=== PATIENT | female | born 1990 | race Caucasian/White ===

== ENCOUNTER 2016-10-19 15:27 | Emergency (ER) | payer OTHER ==
[2016-10-19] MEDS ORDERED: NS 0.9% 1000 ML* 2,000 ML IV ONE (18:42)
[2016-10-19] MEDS ORDERED: Meclizine TAB* 12.5 MG PO ONE (19:41)
[2016-10-19 20:11] LABS: Hematocrit 38 % (35-47); Hemoglobin 13.1 g/dl (12.0-16.0); Mean Corpuscular HGB Conc 34 g/dl (31-36); Mean Corpuscular Hemoglobin 30 pg (27-31); Mean Corpuscular Volume 89 fL (80-97); Mean Platelet Volume 9 um3 (7.4-10.4); Red Blood Count 4.31 10^6/ul (4.0-5.4); Red Cell Distribution Width 13 % (10.5-15); White Blood Count 9.3 10^3/ul (3.5-10.8)
[2016-10-19 20:27] LABS: Albumin 4.5 g/dL (3.2-5.2); BUN/Creatinine Ratio 19.6 (8-20); Calcium 9.6 mg/dL (8.6-10.3); EGFR Non-African American 129.9 (>60); Magnesium 2.1 mg/dL (1.9-2.7); Potassium 3.5 mmol/L (3.5-5.0); Total Bilirubin 0.6 mg/dL (0.2-1.0); Total Protein 7.5 g/dL (6.4-8.9)
--- NOTE | 2016-10-19 21:01 | RAD ---
Indication: . Real-time sonography of the was performed. There is a single intrauterine gestation with a yolk sac a 4 mm with heart activity noted at 161 bpm. Amniotic fluid is within normal limits. The mean crown-rump length is 17 mm corresponding to gestational age of 8 weeks 1 day. The mean gestational sac size is 3.0 cm corresponding to gestational age of 8 weeks 2 days. The estimated gestational age is 8 weeks 2 days. Estimated date of delivery is May 29, 2017. There is a small subchorionic hemorrhage measuring 15 x 8 x 9 mm in the right fundus of the uterus. The right ovary measures 18 x 8 x 12 mm. Left ovary measures 29 x 21 x 25 mm. Likely corpus luteal cyst measuring up to 19 mm. IMPRESSION: Single intrauterine gestation with a composite gestational age of 8 weeks 2 days. Estimated date of delivery is May 29, 2017. heart activity is noted. Subchorionic hemorrhage in the right uterine fundus measuring 15 x 8 x 9 mm.
[2016-10-19 21:31] LABS: Urine Bilirubin Negative (Negative); Urine Glucose Negative (Negative); Urine Nitrite Negative (Negative)
[2016-10-19 22:50] VITALS: BP 98/66
--- NOTE | 2016-10-19 23:07 | ED ---
Bryant Weiss Claudia, scribed for Ray Ricks on 10/19/16 at 2106 . Complex/Multi-Sys Presentation - HPI Summary HPI Summary: 25 year old female presents to the ED with lightheadedness gradual onset 4 days ago. Pt notes aggravated Sx with movement of her head. Pt denies SOB, CP abd pain. Pt notes her Sx are improved while she has been laying supine in the ED. Pt notes she is 8 weeks . - History Of Current Complaint Chief Complaint: EDDizziness Time Seen by Provider: 10/19/16 19:14 Hx Obtained From: Patient Onset/Duration: Gradual Onset, Lasting Days Timing: Intermittent, Lasting: Associated Signs And Symptoms: Positive: Other - lightheaded - Allergies/Home Medications Allergies/Adverse Reactions: Allergies Allergy/AdvReac Type Severity Reaction Status Date / Time No Known Allergies Allergy Verified 12/15/15 09:31 PMH/Surg Hx/FS Hx/Imm Hx Previously Healthy: Yes Sensory History: Reports: Hx Contacts or Glasses - GLASSES Denies: Hx Hearing Aid Opthamlomology History: Reports: Hx Contacts or Glasses - GLASSES - Surgical History Surgery Procedure, Year, and Place: CSECTION X3 2008, 2013, 07[place]12 [facility] [place] Anesthesia Reactions: No Infectious Disease History: Yes Infectious Disease History: Denies: Traveled Outside the [place] in Last 30 Days - Family History Known Family History: Negative: Hypertension, Diabetes - Social History Occupation: Employed Full-time Lives: With Family Alcohol Use: None Substance Use Type: Reports: None Substance Use Comment - Amount & Last Used: no known Smoking Status (MU): Never Smoked Tobacco Review of Systems Constitutional: Negative Negative: Fever Eyes: Negative ENT: Negative Cardiovascular: Negative Respiratory: Negative Gastrointestinal: Negative Genitourinary: Negative Musculoskeletal: Negative Skin: Negative Neurological: Other - lightheadedness Psychological: Normal All Other Systems Reviewed And Are Negative: Yes Physical Exam Triage Information Reviewed: Yes Vital Signs On Initial Exam: Initial Vitals Temp Pulse Resp BP Pulse Ox 98.3 F 97 17 111/64 100 10/19/16 15:31 10/19/16 15:31 10/19/16 15:31 10/19/16 15:31 10/19/16 15:31 Vital Signs Reviewed: Yes Appearance: Positive: Well-Appearing, No Pain Distress Skin: Positive: Warm, Skin Color Reflects Adequate Perfusion, Dry Head/Face: Positive: Normal Head/Face Inspection Eyes: Positive: EOMI, ROSE ENT: Positive: Normal ENT inspection Neck: Positive: Supple, Nontender Respiratory/Lung Sounds: Positive: Clear to Auscultation, Breath Sounds Present Cardiovascular: Positive: RRR, Pulses are Symmetrical in both Upper and Lower Extremities Abdomen Description: Positive: Nontender, Soft Musculoskeletal: Positive: Normal, Strength/ROM Intact Neurological: Positive: Normal, Sensory/Motor Intact, Alert, Oriented to Person Place, Time - [place] Coma Scale Coma Scale Total: 15 Diagnostics - Vital Signs Vital Signs Temp Pulse Resp BP Pulse Ox 10/19/16 18:33 98.8 F 86 20 98/57 100 10/19/16 17:26 98.5 F 90 20 103/69 100 10/19/16 16:28 98.9 F 95 16 107/72 100 10/19/16 15:31 98.3 F 97 17 111/64 100 - Laboratory Lab Results: Lab Results 10/19/16 10/19/16 Range/Units 20:00 20:00 WBC 9.3 (3.5-10.8) 10^3/ul RBC 4.31 (4.0-5.4) 10^6/ul Hgb 13.1 (12.0-16.0) g/dl Hct 38 (35-47) % MCV 89 (80-97) fL MCH 30 (27-31) pg MCHC 34 (31-36) g/dl RDW 13 (10.5-15) % Plt Count 281 (150-450) 10^3/ul MPV 9 (7.4-10.4) um3 Neut % (Auto) 60.2 (38-83) % Lymph % (Auto) 31.2 (25-47) % [place] % (Auto) 6.3 (1-9) % Eos % (Auto) 1.4 (0-6) % Baso % (Auto) 0.9 (0-2) % Absolute Neuts (auto) 5.6 (1.5-7.7) 10^3/ul Absolute Lymphs (auto) 2.9 (1.0-4.8) 10^3/ul Absolute Monos (auto) 0.6 (0-0.8) 10^3/ul Absolute Eos (auto) 0.1 (0-0.6) 10^3/ul Absolute Basos (auto) 0.1 (0-0.2) 10^3/ul Absolute Nucleated RBC 0 10^3/ul Nucleated RBC % 0 Sodium 133 (133-145) mmol/L Potassium 3.5 (3.5-5.0) mmol/L Chloride 102 (101-111) mmol/L Carbon Dioxide 23 (22-32) mmol/L Anion Gap 8 (2-11) mmol/L BUN 11 (6-24) mg/dL Creatinine 0.56 (0.51-0.95) mg/dL Est GFR ( Amer) 167.0 (>60) Est GFR (Non-Af Amer) 129.9 (>60) BUN/Creatinine Ratio 19.6 (8-20) Glucose 80 (70-100) mg/dL Calcium 9.6 (8.6-10.3) mg/dL Magnesium 2.1 (1.9-2.7) mg/dL Total Bilirubin 0.60 (0.2-1.0) mg/dL AST 18 (13-39) U/L ALT 20 (7-52) U/L Alkaline Phosphatase 47 (34-104) U/L Troponin I 0.00 (<0.04) ng/mL Total Protein 7.5 (6.4-8.9) g/dL Albumin 4.5 (3.2-5.2) g/dL Globulin 3.0 (2-4) g/dL Albumin/Globulin Ratio 1.5 (1-3) Lipase 15 (11.0-82.0) U/L Beta HCG, Quant 646092.00 mIU/mL Result Diagrams: 10/19/16 20:00 10/19/16 20:00 Lab Statement: Any lab studies that have been ordered have been reviewed, and results considered in the medical decision making process. - Ultrasound No standard instances Ultrasound Interpretation: Positive (See Comments) - Transvaginal US: single intrauterine gestation with a composite gestational age of 8 weeks 2 days. Estimated date of delivery is May 29, 2017. heart activity is noted. Subchorionic hemmorhage in the right uterine fundus measuring 15 x 8 x 9mm. Ultrasound Interpretation Completed By: Radiologist Re-Evaluation - Re-Evaluation 1 Re-Evaluation Time: 22:17 Comment: LAB WORK AND IMAGING DISCUSSED WIHT PT WHOM IS AGREEABLE WITH PLAN TO BE D/C HOME AND F/O WITH OBGYN Complex Multi-Symp Course/Dx Assessment/Plan: AFTER LAB/ URINE WORKUP AND US TRANSVAGINAL PT IS AGREEABLE WITH THE PLAN TO BE D/C HOME AND FOLLOW UP WITH OBGYN - Diagnoses Provider Diagnoses: Threatened in early Discharge - Discharge Plan Condition: Stable Disposition: HOME Referrals: Kelley Hart MD [Primary Care Provider] - Additional Instructions: PLEASE FOLLOW- UP WITH YOUR OBGYN IN 3 DAYS. The documentation as recorded by the Bryant olvera Claudia accurately reflects the service I personally performed and the decisions made by , Ray Ricks.
== END 2016-10-19 22:50 | disposition home or self-care (01) ==
LOC: ED 15:27
DX: O20.0 Threatened abortion (principal); R42 Dizziness and giddiness
CPT/HCPCS: 36415; 76830; 80053; 81003; 83690; 83735; 84484; 84702; 85025; 86850; 86900; 86901; 99284

== ENCOUNTER 2017-03-19 15:57 | Emergency (ER) | payer OTHER ==
[2017-03-19] MEDS ORDERED: NS 0.9% 1000 ML* 2,000 ML IV ONE (17:36)
[2017-03-19 17:58] LABS: Hematocrit 34 % (35-47); Hemoglobin 11.7 g/dl (12.0-16.0); Mean Corpuscular HGB Conc 34 g/dl (31-36); Mean Corpuscular Hemoglobin 32 pg (27-31); Mean Corpuscular Volume 92 fL (80-97); Mean Platelet Volume 8 um3 (7.4-10.4); Red Cell Distribution Width 12 % (10.5-15); White Blood Count 13.4 10^3/ul (3.5-10.8)
[2017-03-19 18:12] LABS: Albumin 3.3 g/dL (3.2-5.2); BUN/Creatinine Ratio 22.9 (8-20); Calcium 8.4 mg/dL (8.6-10.3); EGFR African American 198.1 (>60); Globulin 3.2 g/dL (2-4); Magnesium 1.8 mg/dL (1.9-2.7); Potassium 3.5 mmol/L (3.5-5.0); Total Bilirubin 0.4 mg/dL (0.2-1.0); Total Protein 6.5 g/dL (6.4-8.9)
[2017-03-19 19:38] VITALS: BP 108/74
--- NOTE | 2017-03-19 20:20 | ED ---
I, Oh,Soohyun, scribed for Charan Hernandez MD on 03/19/17 at 1744 . Dizziness - HPI Summary HPI Summary: This 26 y/o female presents to ED for dizziness and nausea since 2 days ago. Pt is currently 29 weeks and 6 days . Due at May 29, 2017. Pt states that she may be dehydrated and reports that she hasn't been drinking much. Her water comes form [facility], and she states that she doesn't like it because " it smelly bleach-y". Pt states that she walks about 1 hour to get to her work. She denies any morning recently. Negative syncopal episode. Pt is nonsmoker or nondrinker. . PMHx includes 3 and cholecystectomy. Primary care involves Dr. Metz. - History Of Current Complaint Chief Complaint: EDOBProblems Stated Complaint: CRAMPS,30 WKS PREG Time Seen by Provider: 03/19/17 17:25 Hx Obtained From: Patient, Medical Records Timing: Constant Character: Lightheaded Aggravating Factor(s): Nothing Alleviating Factor(s): Nothing Associated Signs And Symptoms: Positive: Nausea - Allergies/Home Medications Allergies/Adverse Reactions: Allergies Allergy/AdvReac Type Severity Reaction Status Date / Time No Known Allergies Allergy Verified 12/15/15 09:31 PMH/Surg Hx/FS Hx/Imm Hx Sensory History: Reports: Hx Contacts or Glasses - GLASSES Denies: Hx Hearing Aid Opthamlomology History: Reports: Hx Contacts or Glasses - GLASSES - Surgical History Surgery Procedure, Year, and Place: CSECTION X3 2008, 2013, 07/12 [facility] [place] Hx Anesthesia Reactions: No Infectious Disease History: No Infectious Disease History: Denies: Traveled Outside the US in Last 30 Days - Family History Known Family History: Negative: Hypertension, Diabetes - Social History Alcohol Use: None Substance Use Type: Reports: None Substance Use Comment - Amount & Last Used: no known Smoking Status (MU): Never Smoked Tobacco Review of Systems Negative: Fever Positive: Nausea Neurological: Other - Positive for dizziness All Other Systems Reviewed And Are Negative: Yes Physical Exam - Summary Physical Exam Summary: The patient is well-nourished in no acute distress and in no acute pain. The skin is warm and dry and skin color reflects adequate perfusion. Good skin turgor. HEENT: The head is normocephalic and atraumatic. The pupils are equal and reactive. The conjunctivae are clear and without drainage. Nares are patent and without drainage. The external ears are intact. The ear canals are patent and without drainage. The tympanic membranes are intact. oral mucosa dry. Neck is supple with full range of motion and non-tender. There are no carotid bruits. There is no neck vein distension. Respiratory: Chest is non-tender. Lungs are clear to auscultation and breath sounds are symmetrical and equal. Cardiovascular: Hear is regular rate and rhythm. There is no murmur or rub auscultated. There is no peripheral edema and pulses are symmetrical and equal. Abdomen: The abdomen is gravid . There are normal bowel sounds heard in all four quadrants and there is no organomegaly palpated. Musculoskeletal: There is no back pain noted. Extremities are non-tender with full range of motion. There is good capillary refill. There is no peripheral edema or calf tenderness elicited. No swelling of extremities. Good pulse Neurological: Patient is alert and oriented to person, place and time. The patient has symmetrical motor strength in all four extremities. Cranial nerves are grossly intact. Deep tendon reflexes are symmetrical and equal in all four extremities. Psychiatric: The patient has an appropriate affect and does not exhibit any anxiety or depression. Triage Information Reviewed: Yes Vital Signs On Initial Exam: Initial Vitals Temp Pulse Resp BP Pulse Ox 97.8 F 100 16 129/85 100 03/19/17 16:03 03/19/17 16:03 03/19/17 16:03 03/19/17 16:03 03/19/17 16:03 Vital Signs Reviewed: Yes - [place] Coma Scale Coma Scale Total: 15 Diagnostics - Vital Signs Vital Signs Temp Pulse Resp BP Pulse Ox 03/19/17 16:03 97.8 F 100 16 129/85 100 - Laboratory Lab Results: Lab Results 03/19/17 03/19/17 03/19/17 Range/Units 17:50 17:50 17:50 WBC 13.4 H (3.5-10.8) 10^3/ul RBC 3.70 L (4.0-5.4) 10^6/ul Hgb 11.7 L (12.0-16.0) g/dl Hct 34 L (35-47) % MCV 92 (80-97) fL MCH 32 H (27-31) pg MCHC 34 (31-36) g/dl RDW 12 (10.5-15) % Plt Count 267 (150-450) 10^3/ul MPV 8 (7.4-10.4) um3 Neut % (Auto) 78.4 (38-83) % Lymph % (Auto) 15.8 L (25-47) % [place] % (Auto) 4.6 (1-9) % Eos % (Auto) 0.8 (0-6) % Baso % (Auto) 0.4 (0-2) % Absolute Neuts (auto) 10.5 H (1.5-7.7) 10^3/ul Absolute Lymphs (auto) 2.1 (1.0-4.8) 10^3/ul Absolute Monos (auto) 0.6 (0-0.8) 10^3/ul Absolute Eos (auto) 0.1 (0-0.6) 10^3/ul Absolute Basos (auto) 0.1 (0-0.2) 10^3/ul Absolute Nucleated RBC 0 10^3/ul Nucleated RBC % 0 Sodium 132 L (133-145) mmol/L Potassium 3.5 (3.5-5.0) mmol/L Chloride 105 (101-111) mmol/L Carbon Dioxide 20 L (22-32) mmol/L Anion Gap 7 (2-11) mmol/L BUN 11 (6-24) mg/dL Creatinine 0.48 L (0.51-0.95) mg/dL Est GFR ( Amer) 198.1 (>60) Est GFR (Non-Af Amer) 154.0 (>60) BUN/Creatinine Ratio 22.9 H (8-20) Glucose 69 L (70-100) mg/dL Lactic Acid 0.6 (0.5-2.0) mmol/L Calcium 8.4 L (8.6-10.3) mg/dL Magnesium 1.8 L (1.9-2.7) mg/dL Total Bilirubin 0.40 (0.2-1.0) mg/dL AST 16 (13-39) U/L ALT 12 (7-52) U/L Alkaline Phosphatase 86 (34-104) U/L Total Protein 6.5 (6.4-8.9) g/dL Albumin 3.3 (3.2-5.2) g/dL Globulin 3.2 (2-4) g/dL Albumin/Globulin Ratio 1.0 (1-3) Result Diagrams: 03/19/17 17:50 03/19/17 17:50 Lab Statement: Any lab studies that have been ordered have been reviewed, and results considered in the medical decision making process. Re-Evaluation - Re-Evaluation First Eval Re-Evaluation Time: 19:20 Comment: MD in room to share lab work with patient and friend present at bedside. Hard copies of lab results are provided to pt. Dizzy Course/Dx - Course Assessment/Plan: This 26 y/o female presents to ED for dizziness. Pt admits to not drinking enough due to her water at home tasting "bleach-y". She also ambulates on foot an hour for her work. Blood work is wnl except for mildly elevated WBC of 13.4 and mild anemia. Pt is given fluid resuscitation with 2L NS. Pt is discharged with outpatient f/u with Dr. Metz. - Diagnoses Differential Diagnosis/HQI/PQRI: Hypovolemia, Metabolic Abnormality, Other - heat exhaustion Provider Diagnoses: Hypoglycemia, Dehydration, Discharge - Discharge Plan Condition: Stable Disposition: HOME Patient Education Materials: (ED), Dehydration (ED), Non-diabetic Hypoglycemia (ED) Referrals: Kelley Hart MD [Primary Care Provider] - 2 Days Chris Metz MD [Medical Doctor] - 2 Days The documentation as recorded by the Min olvera Soohyun accurately reflects the service I personally performed and the decisions made by me, Charan Hernandez MD.
== END 2017-03-19 19:38 | disposition home or self-care (01) ==
LOC: ED 15:57
DX: R42 Dizziness and giddiness (principal); O26.893 Other specified pregnancy related conditions, third trimester; Z3A.29 29 weeks gestation of pregnancy; R11.0 Nausea; E16.2 Hypoglycemia, unspecified; E86.0 Dehydration
CPT/HCPCS: 36415; 80053; 83605; 83735; 85025; 99282

== ENCOUNTER 2017-05-09 17:50 | Inpatient (IN) | payer OTHER ==
[2017-05-09 18:39] LABS: Hematocrit 29 % (35-47); Hemoglobin 9.9 g/dl (12.0-16.0); Mean Corpuscular HGB Conc 34 g/dl (31-36); Mean Corpuscular Hemoglobin 30 pg (27-31); Mean Corpuscular Volume 87 fL (80-97); Mean Platelet Volume 8 um3 (7.4-10.4); Red Blood Count 3.34 10^6/ul (4.0-5.4); Red Cell Distribution Width 13 % (10.5-15)
[2017-05-09] MEDS ORDERED: Sodium Citrate/Citric Acid* 15 ML UDC PO ONE (19:06)
[2017-05-09] MEDS ORDERED: ceFOXitin 2 GM IVPREMIX* 2 GM/50 ML BAG IVPB ONE (19:06)
[2017-05-09] MEDS ORDERED: ceFOXitin 2 GM IVPREMIX* 2 GM/50 ML BAG ONE (19:26)
[2017-05-09] MEDS ORDERED: Sodium Citrate/Citric Acid* 15 ML UDC ONE (19:26)
[2017-05-09] MEDS ORDERED: Morphine PF AMP (0.5MG/ML)* 5 MG/10 ML AMP ONE (19:56)
[2017-05-09] MEDS ORDERED: Nalbuphine* 20 MG/ML 1 ML VIAL IV PRN ×2 (20:21→20:22)
[2017-05-09] MEDS ORDERED: diPHENhydraMINE IV* 50 MG/ML 1 ml VIAL (BENADRYL) IV PRN ×2 (20:21→20:22)
[2017-05-09] MEDS ORDERED: DiMENhydriNATE IV* 50 MG/ML VIAL IV PUSH PRN ×2 (20:21→20:22)
[2017-05-09] MEDS ORDERED: oxyCODONE/Acetamin 5/325 MG* TAB PO PRN (20:21)
[2017-05-09] MEDS ORDERED: HYDROmorphone INJ* 1 MG/ML CARPUJECT SYRINGE IV PRN (20:21)
[2017-05-09] MEDS ORDERED: fentaNYL* 50 MCG/ML 2 ML VIAL (100 MCG VIAL) IV PRN (20:21)
[2017-05-09] MEDS ORDERED: Ondansetron INJ* 2 MG/ML VIAL IV PRN ×2 (20:21→20:22)
[2017-05-09] MEDS ORDERED: Naloxone* 2 MG in NS 0.9% 250 ML* 250 ML IV PRN ×2 (20:21→20:22)
[2017-05-09] MEDS ORDERED: Scopolamine 1.5 mg* PATCH TRANSDERM PRN (20:22)
[2017-05-09] MEDS ORDERED: oxyCODONE TAB* 5 MG TAB PO PRN (20:22)
[2017-05-09] MEDS ORDERED: Naloxone* 0.4 MG/ML 1 ML VIAL IV PRN (20:22)
[2017-05-09] MEDS ORDERED: Scopolomine PATCH Remove* 1 NOTE MISC PATCH OFF PRN (20:22)
[2017-05-09] MEDS ORDERED: OXYTOCIN* 10 UNITS/ML 1 ML VIAL ONE (20:30)
[2017-05-09] MEDS ORDERED: Acetaminophen TAB* 325 MG PO PRN (21:06)
[2017-05-09] MEDS ORDERED: Glycerin ADULT SUPP PR PRN (21:06)
[2017-05-09] MEDS ORDERED: Dibucaine 1% 28.35 GM TUBE PR PRN (21:06)
[2017-05-09] MEDS ORDERED: Witch Hazel PAD* JAR TOPICAL PRN (21:06)
[2017-05-09] MEDS: Ibuprofen TAB* 600 MG PO PRN (23:02)
[2017-05-09] MEDS: oxyCODONE/Acetamin 5/325 MG* TAB PO PRN (23:58)
[2017-05-10] MEDS ORDERED: Lidocaine 1% MPF* 2 ML VIAL ONE (00:45)
[2017-05-10] MEDS: Simethicone TAB* 80 MG TAB.CHEW PO SCH ×4 (07:30→21:35)
[2017-05-10] MEDS: Docusate CAP* 100 MG PO SCH ×3 (07:30→21:35)
[2017-05-10] MEDS: Ibuprofen TAB* 600 MG PO PRN ×3 (07:31→21:35)
[2017-05-10 08:00] LABS: Hematocrit 27 % (35-47); Hemoglobin 9.2 g/dl (12.0-16.0); Mean Corpuscular HGB Conc 35 g/dl (31-36); Mean Corpuscular Hemoglobin 30 pg (27-31); Mean Corpuscular Volume 87 fL (80-97); Mean Platelet Volume 9 um3 (7.4-10.4); Red Blood Count 3.05 10^6/ul (4.0-5.4); Red Cell Distribution Width 13 % (10.5-15); White Blood Count 13.1 10^3/ul (3.5-10.8)
[2017-05-10] MEDS: Ferrous Gluconate TAB* 324 MG TAB PO SCH ×2 (08:34→21:35)
[2017-05-10] MEDS ORDERED: Zolpidem TAB* 5 MG PO PRN (12:05)
[2017-05-10] MEDS ORDERED: oxyCODONE/Acetamin 5/325 MG* TAB PO PRN (12:05)
[2017-05-10] MEDS: oxyCODONE/Acetamin 5/325 MG* TAB PO PRN ×2 (15:37→21:35)
[2017-05-11] MEDS: Ibuprofen TAB* 600 MG PO PRN ×2 (04:49→13:49)
[2017-05-11] MEDS: Ferrous Gluconate TAB* 324 MG TAB PO SCH ×2 (07:30→20:55)
[2017-05-11] MEDS: Simethicone TAB* 80 MG TAB.CHEW PO SCH ×4 (07:30→20:55)
[2017-05-11] MEDS: Docusate CAP* 100 MG PO SCH ×3 (07:31→20:54)
[2017-05-11] MEDS: oxyCODONE/Acetamin 5/325 MG* TAB PO PRN ×3 (10:13→23:09)
[2017-05-12] MEDS: Simethicone TAB* 80 MG TAB.CHEW PO SCH (08:19)
[2017-05-12] MEDS: Docusate CAP* 100 MG PO SCH (08:19)
[2017-05-12] MEDS: oxyCODONE/Acetamin 5/325 MG* TAB PO PRN (08:20)
[2017-05-12] MEDS: Ferrous Gluconate TAB* 324 MG TAB PO SCH (08:20)
[2017-05-12] MEDS: Ibuprofen TAB* 600 MG PO PRN (08:21)
[2017-05-12 08:35] VITALS: BP 117/72
--- NOTE | 2017-05-18 06:24 | OP ---
CC: Dr. Ford * DATE OF OPERATION: 05/09/17 - ROOM #MCHOB-101 DATE OF : 86 SURGEON: Regino Metz MD. CONSTRUCTION EQUIPMENT MECHANIC HELPER: Dr. Ford. ANESTHESIOLOGIST: Ashwin Mcgill MD ANESTHESIA: General anesthesia with endotracheal intubation. PRE-OP DIAGNOSIS: Intrauterine at 37 weeks with the prior section x3 with hepatic cholestasis, breech presentation and she also desires permanent sterilization. POST-OP DIAGNOSIS: Intrauterine at 37 weeks with the prior section x3 with hepatic cholestasis, breech presentation and she also desires permanent sterilization. OPERATIVE PROCEDURE: Repeat low transverse section and bilateral tubal ligation with the right modified [place] tubal ligation and left salpingectomy. ESTIMATED BLOOD LOSS: 600 cc. SPECIMENS: Sent to pathology were portions of the right and left fallopian tubes. FLUIDS: She received 1700 cc of IV crystalloid fluid. URINE OUTPUT: Her urine output was clear with 200 cc. FINDINGS: Delivery of a viable female in breech presentation weighing 6 pounds and 11 ounces with 's of 8 and 8. The placenta was grossly intact with a 3-vessel cord noted. The uterus, adnexa, bowel, and bladder were all within normal limits and there were no complications. DESCRIPTION OF PROCEDURE: The patient was taken to the operating room where she was identified. She was placed on the operating room table where a spinal anesthetic was obtained without difficulty. She was then placed in the supine position with a leftward tilt, prepped and draped in a normal sterile fashion. A Pfannenstiel skin incision was then made with a knife and carried through the underlying layer of fascia. The fascia was then nicked in the midline and extended laterally with curved Bashir scissors. The fascia was then grasped superiorly and inferiorly with Danyell clamps and dissected off sharply from the rectus muscle. The rectus muscle was in the midline bluntly, the peritoneum was identified, grasped with pickups, and entered sharply with Metzenbaum scissors and extended superiorly and inferiorly sharply. A bladder blade was inserted into the patient's abdomen, a bladder flap was then created using Metzenbaum scissors over which the bladder blade was then reinserted. A low transverse uterine incision was made with a knife, extended laterally with bandage scissors. The amniotic sac was ruptured, fluid was noted to be clear. The baby was then delivered through a breech extraction. The baby's nose and mouth were suctioned. The cord was clamped and cut. The infant was then handed off to awaiting process equipment operator. Cord bloods were obtained. The placenta was removed manually. The uterus was then exteriorized and cleared of all clot and debris using moist laparotomy sponges. The uterine incision was then closed using 0 Polysorb suture in a running locked fashion with a second imbricating layer of 0 Polysorb suture with good hemostasis noted. At this point, we proceeded do a bilateral tubal ligation using 3-0 Polysorb sutures. The right fallopian tube was ligated using a modified [place] ligation and the left tube as a left salpingectomy. Portions of the right and left fallopian tubes were sent to pathology. At this point, the patient's uterus was returned to the patient's abdomen. The gutters were then cleared of all clot and debris using moist laparotomy sponges. All the sponges and instruments were then removed from the patient's abdomen. The uterine incision was noted to be hemostatic. The peritoneum was then closed using 2-0 Polysorb suture in a running fashion. The fascia was closed using 0 Polysorb suture in a running fashion and the skin was closed with a 4-0 Monocryl subcuticular stitch. The patient tolerated the procedure well. Sponge, lap, needle count were correct x2. She was then transferred to the recovery room area in stable condition. [id number]/[facility] #: [id number] REAL
== END 2017-05-12 11:00 | disposition home or self-care (01) | DRG 540 ==
LOC: MCHOBOUT 17:50 → MCHOB 18:08
PROVIDERS: ADMIT Obstetrics & Gynecology; ATTEND Obstetrics & Gynecology
PROC: 0UB70ZZ Excision of Bilateral Fallopian Tubes, Open Approach (ICD-10-PCS; 2017-05-09)
PROC: 10D00Z1 Extraction of Products of Conception, Low, Open Approach (ICD-10-PCS; principal; 2017-05-09 19:56)
DX: O32.1XX0 Maternal care for breech presentation, not applicable or unspecified (principal); K83.1 Obstruction of bile duct; O26.62 Liver and biliary tract disorders in childbirth; O99.824 Streptococcus B carrier state complicating childbirth; O34.211 Maternal care for low transverse scar from previous cesarean delivery; O90.81 Anemia of the puerperium; D64.9 Anemia, unspecified; Z3A.37 37 weeks gestation of pregnancy; Z37.0 Single live birth; Z30.2 Encounter for sterilization
CPT/HCPCS: 36415; 82239; 85025; 85610; 86850; 86900; 86901; 88302; A9270-GY; J0694; J1200; J2590

== ENCOUNTER 2018-06-27 09:32 | Day surgery (SDC) | payer OTHER ==
[2018-06-27 10:11] LABS: ABS Basophils 0.1 10^3/ul (0-0.2); ABS Eosinophils 0.3 10^3/ul (0-0.6); ABS Lymphocytes 1.2 10^3/ul (1.0-4.8); ABS Monocytes 0.7 10^3/ul (0-0.8); ABS Neutrophils 6.1 10^3/ul (1.5-7.7); ABS Nucleated RBC 0 10^3/ul; Eosinophil % 3.8 % (0-6); Hematocrit 34 % (35-47); Hemoglobin 11.7 g/dl (12.0-16.0); Lymphocyte % 14.3 % (25-47); Mean Corpuscular HGB Conc 35 g/dl (31-36); Mean Corpuscular Hemoglobin 31 pg (27-31); Mean Corpuscular Volume 88 fL (80-97); Mean Platelet Volume 7.3 um3 (7.4-10.4); Nucleated Red Blood Cells % 0; Platelet Count 353 10^3/ul (150-450); Red Blood Count 3.81 10^6/ul (4.00-5.40); Red Cell Distribution Width 13 % (10.5-15); White Blood Count 8.4 10^3/ul (3.5-10.8)
[2018-06-27 10:35] LABS: EGFR Non-African American 92.8 (>60)
--- NOTE | 2018-06-27 11:21 | RAD ---
Indication: Assess for retained products of conception. Comparison: October 19, 2016 first trimester ultrasound. Technique: Transvaginal pelvic ultrasound. Report: 8.3 x 4.1 x 5.1 cm anteverted uterus. Thickened 2.4 cm heterogeneous echogenicity endometrium with intrinsic vascularity on Doppler suspicious for retained products of conception given the clinical context. Negative for free pelvic fluid. 1.8 x 2.3 x 2.0 cm RIGHT ovary with documented vascular flow is remarkable for a dominant 1.2 cm follicular cyst. 2.3 x 1.0 x 1.7 cm LEFT ovary with documented vascular flow is remarkable for a dominant 0.9 cm follicular cyst. No visualized extra ovarian adnexal region lesions evident. IMPRESSION: #. Thickened 2.4 cm heterogeneous echogenicity endometrium with intrinsic vascularity on Doppler suspicious for retained products of conception given the clinical context.
[2018-06-27] MEDS: NS 0.9% 1000 ML* 1,000 ML IV ONE ×2 (11:49→12:18)
--- NOTE | 2018-06-27 12:31 | ED ---
- HPI Summary HPI Summary: Patient is a 27-year-old female who presents emergency department for vaginal bleeding and cramping times roughly 2 weeks. Patient states she was told she was having a miscarriage about 2 weeks ago at 8 weeks gestation. A0. Patient's history of tubal ligation. She states that she passed which she believes was tissue material about 2 weeks ago. She states since she is still passing clots and cramping. Pt. states bleeding is mild. She notes to dizziness but denies chest pain, shortness of breath, fever, chills, nausea, vomiting. She has no past medical history. Symptoms are moderate in severity. No current modifying factors. - History of Current Complaint Chief Complaint: EDVaginalBleeding Stated Complaint: VAGINAL BLEEDING Time Seen by Provider: 06/27/18 09:44 Hx Obtained From: Patient Pain Intensity: 0 - Assessment SAB: 0 IEA: 0 - Additional Pertinent History Maternal Blood Type and Rh: O Positive - Allergies/Home Medications Allergies/Adverse Reactions: Allergies Allergy/AdvReac Type Severity Reaction Status Date / Time No Known Allergies Allergy Verified 06/27/18 13:54 Home Medications: Home Medications NK [No Home Medications Reported] 06/27/18 [History Confirmed 06/27/18] PMH/Surg Hx/FS Hx/Imm Hx Previously Healthy: Yes Sensory History: Reports: Hx Contacts or Glasses - GLASSES Denies: Hx Hearing Aid Opthamlomology History: Reports: Hx Contacts or Glasses - GLASSES - Surgical History Surgery Procedure, Year, and Place: CSECTION X3 2008, [place] [facility] [place] Anesthesia Reactions: No Infectious Disease History: No Infectious Disease History: Denies: Traveled Outside the [place] in Last 30 Days - Family History Known Family History: Negative: Hypertension, Diabetes - Social History Alcohol Use: None Substance Use Type: Reports: None Substance Use Comment - Amount & Last Used: no known Smoking Status (MU): Never Smoked Tobacco Review of Systems Constitutional: Negative Negative: Fever, Chills Cardiovascular: Negative Negative: Chest Pain Respiratory: Negative Negative: Shortness Of Breath Positive: Abdominal Pain. Negative: Vomiting, Nausea Positive: other - Vaginal bleeding. Neurological: Negative All Other Systems Reviewed And Are Negative: Yes Physical Exam - Physical Exam Triage Information Reviewed: Yes Vital Signs Reviewed: Yes Appearance: Positive: Well-Appearing - Pt. sitting up in bed in NAD. Family member present. Skin: Positive: Warm, Dry Head/Face: Positive: Normal Head/Face Inspection Eyes: Positive: Normal Neck: Positive: Supple Respiratory/Lung Sounds: Positive: Clear to Auscultation, Breath Sounds Present Cardiovascular: Positive: Normal, RRR Abdomen Description: Positive: Nontender, Soft Neurological: Positive: Normal, CN Intact II-III Psychiatric: Positive: Affect/Mood Appropriate - Vaginal Assessment Presentation Comment: breech confirmed with bedside sonogram Diagnostics - Vital Signs Vital Signs Temp Pulse Resp BP Pulse Ox 06/27/18 12:18 96 102/68 98 06/27/18 12:00 96 98 06/27/18 11:00 97 98 06/27/18 10:07 93 100 06/27/18 10:04 94 100 06/27/18 10:02 94 06/27/18 09:34 98.3 F 102 16 120/79 100 - Laboratory Lab Results: Lab Results 06/27/18 06/27/18 Range/Units 10:01 10:01 WBC 8.4 (3.5-10.8) 10^3/ul RBC 3.81 L (4.00-5.40) 10^6/ul Hgb 11.7 L (12.0-16.0) g/dl Hct 34 L (35-47) % MCV 88 (80-97) fL MCH 31 (27-31) pg MCHC 35 (31-36) g/dl RDW 13 (10.5-15) % Plt Count 353 (150-450) 10^3/ul MPV 7.3 L (7.4-10.4) um3 Neut % (Auto) 72.9 (38-83) % Lymph % (Auto) 14.3 L (25-47) % [place] % (Auto) 8.1 H (0-7) % Eos % (Auto) 3.8 (0-6) % Baso % (Auto) 0.9 (0-2) % Absolute Neuts (auto) 6.1 (1.5-7.7) 10^3/ul Absolute Lymphs (auto) 1.2 (1.0-4.8) 10^3/ul Absolute Monos (auto) 0.7 (0-0.8) 10^3/ul Absolute Eos (auto) 0.3 (0-0.6) 10^3/ul Absolute Basos (auto) 0.1 (0-0.2) 10^3/ul Absolute Nucleated RBC 0 10^3/ul Nucleated RBC % 0 Sodium 139 (135-145) mmol/L Potassium 3.9 (3.5-5.0) mmol/L Chloride 106 (101-111) mmol/L Carbon Dioxide 25 (22-32) mmol/L Anion Gap 8 (2-11) mmol/L BUN 11 (6-24) mg/dL Creatinine 0.74 (0.51-0.95) mg/dL Est GFR ( Amer) 112.3 (>60) Est GFR (Non-Af Amer) 92.8 (>60) BUN/Creatinine Ratio 14.9 (8-20) Glucose 93 (70-100) mg/dL Calcium 9.3 (8.6-10.3) mg/dL Beta HCG, Quant 196.19 mIU/mL Result Diagrams: 06/27/18 10:01 06/27/18 10:01 Lab Statement: Any lab studies that have been ordered have been reviewed, and results considered in the medical decision making process. Course/Dx - Course Course Of Treatment: Patient presenting with ongoing vaginal bleeding and clotting after recent miscarriage. She is afebrile with stable blood pressure. Heart rate is mildly tachycardic. Basic blood work was drawn. Will give her a liter of IV fluids given slight tachycardia. Ultrasound was ordered to evaluate for retained products of conception. CBC shows mildly low H&H at 11.7 and 34. Normal WBC. U/S read per radiology: IMPRESSION: #. Thickened 2.4 cm heterogeneous echogenicity endometrium with intrinsic vascularity on. Doppler suspicious for retained products of conception given the clinical context. I spoke with tierra JOSE, Dr. Grady, who examined pt. in ED. He plans to take her to the OR today for a D and C for retained products of conception. Pt. has remained stable in ER. - Diagnoses Provider Diagnoses: Retained products of conception Discharge - Sign-Out/Discharge Documenting (check all that apply): Patient Departure - Discharge Plan Condition: Stable Disposition: ADMITTED TO [facility] - Billing Disposition and Condition Condition: STABLE Disposition: Admitted to [facility] [place]
[2018-06-27] MEDS ORDERED: DOXYcycline IV* 100 MG in NS 0.9% 250 ML* 250 ML IVPB ONE (13:16)
--- NOTE | 2018-06-27 13:26 | HP ---
H&P (Free Text) History and Physical: History and Physical HPI: 27yo woman with known SAB, followed by Dr. Metz last month. Actually had BTL with last C/S. Reports she passed tissue about 2 wks ago but since then has been having light and then moderate bleeding. She has not had an ultrasound since passing the tissue. Denies fever/chills. Occ mild cramping sometimes. PMH: none PSH: C/S x4 (last with BTL), cholecystectomy Meds: none All: NKDA Soc: no tob, occ EtOH, denies drug use VS: normal, afebrile Gen: NAD, comfortable, good historian Chest CTA bilat CVS RRR Abd soft, nontender HCG 05/16 77,000 06/27 196.19 H/H 11.7/34 U/S: normal size uterus, endometrial cavity tissue 2.4cm heterogeneous with vascular flow Normal adnexa Imp: likely incomplete , stable, no e/o infection Plan: Discussed options including misoprostol vs D&C. Pt opts for D&C today. NPO since 629 Pt counseled regarding risks of surgery including bleeding, transfusion, infection, uterine perforation. Doxycycline IV groundwater consultant to OR. OR will call for pt presently.
[2018-06-27] MEDS ORDERED: Sodium Citrate/Citric Acid* 15 ML UDC ONE (14:33)
[2018-06-27] MEDS ORDERED: fentaNYL* 50 MCG/ML 2 ML VIAL (100 MCG VIAL) ONE (14:43)
[2018-06-27] MEDS ORDERED: Propofol* 10 MG/ML 20 ML BTL IV PUSH ONE ×2 (14:47→15:05)
[2018-06-27] MEDS ORDERED: Lidocaine 2% PF * 5 ML VIAL ONE (14:48)
[2018-06-27] MEDS ORDERED: Silver Nitrate/Potassium Nitr* 1 EA STICK ONE (15:08)
[2018-06-27] MEDS ORDERED: Naloxone* 0.4 MG/ML 1 ML VIAL IV PRN (15:24)
[2018-06-27] MEDS ORDERED: fentaNYL* 50 MCG/ML 2 ML VIAL (100 MCG VIAL) IV PRN (15:24)
[2018-06-27] MEDS ORDERED: Ondansetron INJ* 2 MG/ML VIAL IV PRN (15:24)
[2018-06-27] MEDS ORDERED: Ketorolac INJ* 30 MG/ML 1 ML VIAL ONE (15:33)
[2018-06-27 16:12] VITALS: BP 112/77
--- NOTE | 2018-06-28 12:38 | OP ---
CC: Dr. Regino Metz * DATE OF OPERATION: 06/27/18 - [facility] DATE OF : 86 SURGEON: Howard Grady MD. ANESTHESIOLOGIST: Dr. Chung. ANESTHESIA: General. PRE-OP DIAGNOSIS: Incomplete . POST-OP DIAGNOSIS: Incomplete . OPERATIVE PROCEDURE: Suction dilation and curettage. MATERIALS TO LAB: Products of conception. ESTIMATED BLOOD LOSS: 50 cc. URINE OUTPUT: 150 cc. IV FLUIDS: 350 cc lactated Ringer's. INDICATIONS: This patient is a 27-year-old woman with a history of 4 prior C- sections with tubal ligation at her last delivery. The patient was found to have a demise in the office about 2 weeks ago. She reports that she passed tissue but over the past 2 weeks she has continued to have continuous bleeding varying from light to moderate in flow. She did not have any ultrasound after passing tissue. Ultrasound in the emergency room today was notable for an approximately 24-mm thick endometrial tissue with vascular flow. This was considered likely to be retained products of conception. The patient desired to proceed with surgical removal. She was extensively counseled and consent was signed for a suction, dilation and curettage. FINDINGS: Moderate amount of tissue within the uterus, which was removed without difficulty. COMPLICATIONS: None. DESCRIPTION OF PROCEDURE: The risks, benefits, and alternatives were described with the patient and informed consent was obtained. The patient was taken to the operating room with IV running where general anesthesia was induced and found to be adequate. The patient was prepped and draped in the normal sterile fashion in high lithotomy position in Hemant stirrups. A time-out was performed. The bladder was emptied. A bimanual exam was performed and the uterus was noted to be extremely anteverted likely due to surgical adhesions from the sections. A bivalve speculum was placed in the vagina and the anterior cervix was grasped with a single-tooth tenaculum. The cervix was then gently dilated using Hanks dilators to a size of 30. At that time, a size 8 curved suction curette was advanced through the cervix and into the uterine cavity without difficulty. The uterus had sounded to about 11 cm. Suction was activated and with about 3 passes, a large piece of tissue was able to be extracted. After that, no additional tissue was located. A medium banjo curette was used to perform a gentle sharp curettage of the uterine cavity and no additional tissue was palpated and remaining. There was minimal bleeding from the cervix at that time. The tenaculum was removed and there was good hemostasis present after applying pressure and some silver nitrate. The speculum was then removed from the vagina and the patient was returned to the supine position. The patient tolerated the procedure well. Sponge, lap, and needle counts were correct x2. [id number]/CPS #: [id number] MTDD
== END 2018-06-27 16:34 | disposition home or self-care (01) ==
LOC: ED 09:32 → OR 13:42
PROVIDERS: ATTEND Obstetrics & Gynecology
DX: O03.4 Incomplete spontaneous abortion without complication (principal)
CPT/HCPCS: 36415; 76817; 80048; 84702; 85025; 86850; 86900; 86901; 88305; 96365; 99284; A9270-GY; J1885; J2704; J3010

== ENCOUNTER 2021-01-06 12:37 | Inpatient (IN) ==
[2021-01-06 13:13] LABS: ABS Lymphocytes 0.9 10^3/ul (1.0-4.8); ABS Monocytes 0.4 10^3/ul (0-0.8); ABS Neutrophils 7.3 10^3/ul (1.5-7.7); Eosinophil % 0.4 %; Hematocrit 32 % (35-47); Lymphocyte % 10.7 %; Mean Corpuscular HGB Conc 34 g/dL (31-36); Mean Corpuscular Hemoglobin 30 pg (27-31); Mean Corpuscular Volume 87 fL (80-97); Mean Platelet Volume 9.2 fL (7.4-10.4); Platelet Count 328 10^3/uL (150-450); Red Blood Count 3.69 10^6 /uL (3.70-4.87); Red Cell Distribution Width 15 % (10-15); White Blood Count 8.8 10^3/uL (3.5-10.8)
[2021-01-06 13:18] LABS: INR 0.95 (0.82-1.09)
[2021-01-06] MEDS ORDERED: ceFOXitin 2 GM IVPREMIX 2 GM/50 ML BAG IVPB ONE (13:37)
[2021-01-06 14:09] LABS: Urine Benzodiazepine Screen None Detected (None Detect); Urine Cannabinoids Screen None Detected (None Detect); Urine Opiates Screen None Detected (None Detect)
[2021-01-06] MEDS ORDERED: Sodium Citrate/Citric Acid LIQ 15 ML UDC ONE (15:11)
[2021-01-06] MEDS ORDERED: Sodium Citrate/Citric Acid LIQ 15 ML UDC PO ONE (15:49)
[2021-01-06] MEDS ORDERED: Buffered Lidocaine 1% SYRIN 1 ml INTRADERM ONE (15:49)
[2021-01-06] MEDS ORDERED: Lactated Ringers 1000 ml BAG 1,000 ML IV SCH ×2 (16:00→20:00)
[2021-01-06] MEDS ORDERED: Ondansetron 4 mg VIAL 2 MG/ML 2 ml VIAL ONE (17:25)
[2021-01-06] MEDS ORDERED: Dexamethasone IV 4 MG/ML VIAL 1 ml VIAL ONE (17:25)
[2021-01-06] MEDS ORDERED: Morphine PF AMP (0.5MG/ML) 5 MG/10 ML AMP ONE (17:26)
[2021-01-06] MEDS ORDERED: fentaNYL 100 mcg/2 ml 50 MCG/ML VIAL ONE (17:26)
[2021-01-06] MEDS ORDERED: Phenylephrine 40 mcg/mL 10mL (400mcg) SYRINGE ONE (17:57)
[2021-01-06] MEDS ORDERED: diPHENhydraMINE IV 50 MG/ML 1 ml VIAL (BENADRYL) IV PRN ×2 (18:22→18:24)
[2021-01-06] MEDS ORDERED: fentaNYL 100 mcg/2 ml 50 MCG/ML VIAL IV PRN (18:22)
[2021-01-06] MEDS ORDERED: Naloxone 0.4 mg VIAL 0.4 mg/ml 1 ml VIAL IV PRN ×2 (18:22→18:24)
[2021-01-06] MEDS ORDERED: Acetaminophen IV 1 GM/100ML 1,000 MG/100 ML VIAL IVPB ONE (18:22)
[2021-01-06] MEDS ORDERED: DiMENhydriNATE IV 50 mg/ml 1 ml VIAL IV PUSH PRN (18:22)
[2021-01-06] MEDS ORDERED: Ondansetron 4 mg VIAL 2 MG/ML 2 ml VIAL IV PRN (18:24)
[2021-01-06] MEDS ORDERED: Dibucaine 1% OINT 28.35 GM TUBE PR PRN (19:05)
[2021-01-06] MEDS ORDERED: Glycerin ADULT 2.4 gm SUPP PR PRN (19:05)
[2021-01-06] MEDS ORDERED: Witch Hazel PAD JAR TOPICAL PRN (19:05)
[2021-01-06] MEDS ORDERED: Acetaminophen IV 1 GM/100ML 100 ML ONE (19:15)
[2021-01-06] MEDS ORDERED: Oxytocin in LR 20 UNITS/1,000 ML BAG IVPB SCH (20:00)
[2021-01-06 21:29] LABS: Urine Appearance Clear; Urine Bilirubin 1+ (Negative); Urine Blood Negative (Negative); Urine Color Amber; Urine Glucose Negative (Negative); Urine Ketones 2+ (Negative); Urine Nitrite Negative (Negative); Urine Protein Negative (Negative); Urine Specific Gravity 1.016 (1.002-1.030); Urine Urobilinogen Negative (Negative)
[2021-01-07 05:53] LABS: ABS Lymphocytes 1.3 10^3/ul (1.0-4.8); ABS Monocytes 0.4 10^3/ul (0-0.8); ABS Neutrophils 9.3 10^3/ul (1.5-7.7); Hematocrit 29 % (35-47); Hemoglobin 9.7 g/dL (12.0-16.0); Lymphocyte % 11.7 %; Mean Corpuscular HGB Conc 34 g/dL (31-36); Mean Corpuscular Hemoglobin 30 pg (27-31); Mean Corpuscular Volume 88 fL (80-97); Mean Platelet Volume 8.5 fL (7.4-10.4); Platelet Count 274 10^3/uL (150-450); Red Blood Count 3.25 10^6 /uL (3.70-4.87); Red Cell Distribution Width 14 % (10-15)
[2021-01-07 07:53] LABS: Albumin 2.6 g/dL (3.2-5.2); Albumin/Globulin Ratio 0.9 (1-3); Calcium 8.5 mg/dL (8.6-10.3); EGFR African American 140.2 (>60); EGFR Non-African American 115.9 (>60); Globulin 2.9 g/dL (2-4); Potassium 4.1 mmol/L (3.5-5.0); Total Protein 5.5 g/dL (6.4-8.9)
[2021-01-09 07:47] VITALS: BP 121/81
[2021-01-09 09:54] LABS: Albumin 3.1 g/dL (3.2-5.2); Calcium 8.6 mg/dL (8.6-10.3); EGFR African American 145.8 (>60); EGFR Non-African American 120.5 (>60); Globulin 3.2 g/dL (2-4); Potassium 3.7 mmol/L (3.5-5.0); Total Bilirubin 1.2 mg/dL (0.2-1.0); Total Protein 6.3 g/dL (6.4-8.9)
[2021-01-09] MEDS ORDERED: Scopolamine PATCH Remove NOTE PATCH OFF PRN (18:24)
== END 2021-01-09 12:20 | disposition home or self-care (01) | DRG 540 ==
LOC: MCHOBOUT 12:37 → MCHOB 13:23
PROVIDERS: ADMIT Obstetrics & Gynecology; ATTEND Obstetrics & Gynecology

== ENCOUNTER 2022-04-18 20:54 | Observation (INO) ==
[2022-04-18 23:02] LABS: ABS Basophils 0.1 10^3/ul (0-0.2); ABS Lymphocytes 1.3 10^3/ul (1.0-4.8); ABS Monocytes 0.6 10^3/ul (0-0.8); ABS Neutrophils 5.7 10^3/ul (1.5-7.7); Eosinophil % 0.6 %; Hematocrit 40 % (35-47); Hemoglobin 13.8 g/dL (12.0-16.0); Lymphocyte % 17.5 %; Mean Corpuscular HGB Conc 35 g/dL (31-36); Mean Corpuscular Hemoglobin 31 pg (27-31); Mean Corpuscular Volume 89 fL (80-97); Mean Platelet Volume 8.5 fL (7.4-10.4); Platelet Count 334 10^3/uL (150-450); Red Blood Count 4.48 10^6 /uL (3.70-4.87); Red Cell Distribution Width 14 % (10-15); White Blood Count 7.7 10^3/uL (3.5-10.8)
[2022-04-18 23:37] LABS: Anion Gap 8 mmol/L (2-11); Blood Urea Nitrogen 11 mg/dL (6-24); CO2 Carbon Dioxide 23 mmol/L (22-32); Chloride 106 mmol/L (101-111); Glucose 108 mg/dL (70-100); Potassium 4.1 mmol/L (3.5-5.0); Sodium 137 mmol/L (135-145)
[2022-04-18 23:38] LABS: AST 675 U/L (13-39); Albumin 4.7 g/dL (3.2-5.2); Albumin/Globulin Ratio 1.5 (1-3); Alkaline Phosphatase 264 U/L (35-149); C Reactive Protein 5.56 mg/L (<8.01); Calcium 9.6 mg/dL (8.6-10.3); Globulin 3.2 g/dL (2-4); Lipase 27 U/L (11.0-82.0); Total Protein 7.9 g/dL (6.4-8.9); eGFR CKD-EPI 113.1 (>60)
[2022-04-18 23:42] LABS: HCG Pregnancy < 0.60 mIU/mL
[2022-04-19 00:34] LABS: Urine Appearance Cloudy; Urine Color Red
[2022-04-19 00:38] LABS: Urine Specific Gravity 1.016 (1.002-1.030)
[2022-04-19 00:50] LABS: Urine Bacteria Absent (Absent); Urine Red Blood Cell 3+(>10/hpf) (Absent); Urine White Blood Cell Trace(0-5/hpf) (Absent)
[2022-04-19 00:51] LABS: Urine Squamous Epithelial Cell Present (Absent)
[2022-04-19] MEDS ORDERED: Iohexol 350 (CONTRAST) 500 ML MDV IV ONE (01:29)
[2022-04-19 02:03] LABS: Acetaminophen < 15 mcg/mL
[2022-04-19 02:15] LABS: ALT 1063 U/L (7-52)
[2022-04-19 02:34] LABS: Hepatitis B Surface Antigen Nonreactive (Nonreactive)
[2022-04-19 02:39] LABS: Hepatitis A Ab IgM Negative (Negative); Hepatitis B Core IgM Nonreactive (Nonreactive)
[2022-04-19 02:51] LABS: Hepatitis C Antibody Negative (Negative)
[2022-04-19] MEDS ORDERED: Ondansetron 4 mg VIAL 2 MG/ML 2 ml VIAL IV ONE (04:18)
[2022-04-19] MEDS ORDERED: Lactated Ringers 1000 ml BAG 1,000 ML IV SCH (05:00)
[2022-04-19 08:14] LABS: ABS Basophils 0.1 10^3/ul (0-0.2); ABS Eosinophils 0.1 10^3/ul (0-0.6); ABS Lymphocytes 1.5 10^3/ul (1.0-4.8); ABS Monocytes 0.5 10^3/ul (0-0.8); Eosinophil % 1.1 %; Hematocrit 38 % (35-47); Hemoglobin 12.8 g/dL (12.0-16.0); Lymphocyte % 24.4 %; Mean Corpuscular HGB Conc 34 g/dL (31-36); Mean Corpuscular Hemoglobin 31 pg (27-31); Mean Corpuscular Volume 90 fL (80-97); Mean Platelet Volume 8.5 fL (7.4-10.4); Nucleated Red Blood Cells % 0.1; Platelet Count 282 10^3/uL (150-450); Red Blood Count 4.17 10^6 /uL (3.70-4.87); Red Cell Distribution Width 14 % (10-15); White Blood Count 6.2 10^3/uL (3.5-10.8)
[2022-04-19 08:21] LABS: Albumin/Globulin Ratio 1.5 (1-3); Direct Bilirubin 1.5 mg/dL (0.03-0.18); Globulin 2.7 g/dL (2-4); Indirect Bilirubin 0.8 mg/dL (0.3-1.0); Total Bilirubin 2.3 mg/dL (0.2-1.0); Total Protein 6.7 g/dL (6.4-8.9)
[2022-04-19 08:22] LABS: INR 0.96 (0.89-1.11)
[2022-04-19] MEDS: D5LR 20 MEQ KCL 1000 ml BAG 1,000 ML IV SCH (14:26)
[2022-04-19] MEDS ORDERED: Metoclopramide 5 MG/ML VIAL (10 mg) IV PRN (15:29)
[2022-04-19] MEDS ORDERED: HYDROmorphone 1 MG/1 ML SYRINGE IV PRN (15:29)
[2022-04-19] MEDS ORDERED: fentaNYL 100 mcg/2 ml 50 MCG/ML VIAL IV PRN (15:29)
[2022-04-19] MEDS ORDERED: Ondansetron 4 mg VIAL 2 MG/ML 2 ml VIAL IV PRN (15:29)
[2022-04-19] MEDS ORDERED: Naloxone 0.4 mg VIAL 0.4 mg/ml 1 ml VIAL IV PRN (15:29)
[2022-04-19 22:17] LABS: Albumin 3.9 g/dL (3.2-5.2); Albumin/Globulin Ratio 1.6 (1-3); Calcium 8.6 mg/dL (8.6-10.3); Globulin 2.4 g/dL (2-4); Total Bilirubin 1.8 mg/dL (0.2-1.0); Total Protein 6.3 g/dL (6.4-8.9); eGFR CKD-EPI 119.1 (>60)
[2022-04-20] MEDS: D5LR 20 MEQ KCL 1000 ml BAG 1,000 ML IV SCH (03:30)
[2022-04-20 06:09] LABS: ABS Eosinophils 0.2 10^3/ul (0-0.6); ABS Lymphocytes 1.4 10^3/ul (1.0-4.8); ABS Monocytes 0.4 10^3/ul (0-0.8); ABS Neutrophils 2.7 10^3/ul (1.5-7.7); Eosinophil % 3.6 %; Hematocrit 34 % (35-47); Hemoglobin 11.7 g/dL (12.0-16.0); Lymphocyte % 29.5 %; Mean Corpuscular HGB Conc 35 g/dL (31-36); Mean Corpuscular Hemoglobin 31 pg (27-31); Mean Corpuscular Volume 91 fL (80-97); Mean Platelet Volume 8.6 fL (7.4-10.4); Platelet Count 250 10^3/uL (150-450); Red Blood Count 3.72 10^6 /uL (3.70-4.87); Red Cell Distribution Width 14 % (10-15); White Blood Count 4.6 10^3/uL (3.5-10.8)
[2022-04-20] MEDS ORDERED: Indomethacin 50 mg SUPP (NF) PR ONE (16:27)
[2022-04-20] MEDS ORDERED: Rocuronium 50 mg VIAL 10 mg/ml 5 ml VIAL (50 mg) ONE ×2 (16:35→18:36)
[2022-04-20] MEDS ORDERED: Dexamethasone IV 4 MG/ML VIAL 1 ml VIAL ONE ×2 (16:35→18:36)
[2022-04-20] MEDS ORDERED: Ondansetron 4 mg VIAL 2 MG/ML 2 ml VIAL ONE ×2 (16:35→18:36)
[2022-04-20] MEDS ORDERED: Propofol 10 MG/ML 20 ML BTL ONE ×2 (16:35→18:36)
[2022-04-20] MEDS ORDERED: Lidocaine 2% PF 5 ML VIAL ONE ×2 (16:38→18:36)
[2022-04-20] MEDS ORDERED: fentaNYL 100 mcg/2 ml 50 MCG/ML VIAL ONE ×3 (16:38→19:04)
[2022-04-20] MEDS ORDERED: HYDROmorphone 1 MG/1 ML SYRINGE IV PRN (18:16)
[2022-04-20] MEDS ORDERED: Naloxone 0.4 mg VIAL 0.4 mg/ml 1 ml VIAL IV PRN (18:16)
[2022-04-20] MEDS ORDERED: Midazolam 5 mg/5 ml VIAL 1 mg/ml 5 ml VIAL (5 mg) ONE (18:37)
[2022-04-20] MEDS ORDERED: HYDROmorphone 1 MG/1 ML SYRINGE ONE (19:00)
[2022-04-21 09:57] LABS: Hematocrit 37 % (35-47); Hemoglobin 12.2 g/dL (12.0-16.0); Mean Corpuscular HGB Conc 33 g/dL (31-36); Mean Corpuscular Hemoglobin 30 pg (27-31); Mean Corpuscular Volume 91 fL (80-97); Red Blood Count 4.04 10^6 /uL (3.70-4.87); Red Cell Distribution Width 14 % (10-15); White Blood Count 11.7 10^3/uL (3.5-10.8)
[2022-04-21 10:11] LABS: Albumin 4.1 g/dL (3.2-5.2); Albumin/Globulin Ratio 1.4 (1-3); Globulin 2.9 g/dL (2-4); Potassium 4.2 mmol/L (3.5-5.0); Total Bilirubin 0.9 mg/dL (0.2-1.0)
[2022-04-21 11:23] LABS: Mean Platelet Volume 9.2 fL (7.4-10.4); Platelet Count 264 10^3/uL (150-450)
[2022-04-21 11:54] LABS: C Reactive Protein 2.66 mg/L (<8.01)
[2022-04-22 05:53] LABS: ABS Basophils 0.1 10^3/ul (0-0.2); ABS Eosinophils 0.1 10^3/ul (0-0.6); ABS Lymphocytes 2.4 10^3/ul (1.0-4.8); ABS Monocytes 0.5 10^3/ul (0-0.8); ABS Neutrophils 3.5 10^3/ul (1.5-7.7); Eosinophil % 1.3 %; Hematocrit 33 % (35-47); Hemoglobin 11.2 g/dL (12.0-16.0); Lymphocyte % 36.8 %; Mean Corpuscular HGB Conc 34 g/dL (31-36); Mean Corpuscular Hemoglobin 31 pg (27-31); Mean Corpuscular Volume 92 fL (80-97); Nucleated Red Blood Cells % 0.1; Platelet Count 241 10^3/uL (150-450); Red Cell Distribution Width 14 % (10-15); White Blood Count 6.5 10^3/uL (3.5-10.8)
[2022-04-22 06:09] LABS: Albumin 3.7 g/dL (3.2-5.2); Albumin/Globulin Ratio 1.5 (1-3); C Reactive Protein 1.51 mg/L (<8.01); Calcium 8.5 mg/dL (8.6-10.3); Globulin 2.5 g/dL (2-4); Potassium 4.1 mmol/L (3.5-5.0); Total Bilirubin 0.6 mg/dL (0.2-1.0); Total Protein 6.2 g/dL (6.4-8.9); eGFR CKD-EPI 99.7 (>60)
[2022-04-22 11:36] VITALS: BP 119/79
== END 2022-04-22 15:58 | disposition home or self-care (01) ==
LOC: EDHOLD 20:54 → ED 20:54 → SSU 04-19 15:53
PROVIDERS: ADMIT Internal Medicine; ATTEND Internal Medicine